=== PATIENT | female | born 1950 | race African-American/Black ===

== ENCOUNTER 2018-01-20 05:45 | Inpatient (IN) | payer OTHER ==
[~2018-01-20] VITALS: Ht 167.6 cm; Wt 94.3 kg
[2018-01-20] MEDS ORDERED: CEFAZOLIN 2 GM IVPB PREMIX 50 ML IV ONE ×2 (06:15→08:00)
[2018-01-20] MEDS ORDERED: ACETAMINOPHEN 500 MG TABLET ONE (06:15)
[2018-01-20] MEDS ORDERED: CELECOXIB 200 MG CAPSULE ONE (06:15)
[2018-01-20] MEDS ORDERED: TRANEXAMIC ACID 650 MG TABLET ONE (06:16)
[2018-01-20] MEDS ORDERED: GABAPENTIN 300 MG CAPSULE ONE (06:16)
[2018-01-20] MEDS ORDERED: oxyCODONE HCL 10 MG TAB.ER.12H PO ONE ×2 (06:16→08:00)
[2018-01-20] MEDS ORDERED: LIP40 PO (06:46)
[2018-01-20] MEDS ORDERED: HYDR12.585 PO (06:46)
[2018-01-20] MEDS ORDERED: POLYMYXIN 500,000/BACIT.10,000 UNITS in NS IRR 1 L IR ONE (07:24)
[2018-01-20] MEDS ORDERED: LR 1,000 ML IV SCH (07:53)
[2018-01-20] MEDS ORDERED: ROPIVACAINE 0.2% 100 ML INJ SCH (07:53)
[2018-01-20] MEDS ORDERED: GABAPENTIN 300 MG CAPSULE PO ONE (08:00)
[2018-01-20] MEDS ORDERED: TRANEXAMIC ACID 650 MG TABLET PO ONE (08:00)
[2018-01-20] MEDS ORDERED: HYDROcodone/ACETAMIN 10-325 MG TAB PO PRN (08:00)
[2018-01-20] MEDS ORDERED: CELECOXIB 200 MG CAPSULE PO ONE (08:00)
[2018-01-20] MEDS ORDERED: ACETAMINOPHEN 500 MG TABLET PO ONE (08:00)
[2018-01-20] MEDS ORDERED: NACL 0.9% 1,000 ML IV ONE (08:00)
[2018-01-20] MEDS ORDERED: MEPERIDINE HCL/PF 25 MG/ML DISP.SYRIN IVP PRN (08:00)
[2018-01-20] MEDS ORDERED: MORPHINE 4 MG/ML INJ. SYRINGE IVP PRN ×4 (08:00→10:00)
[2018-01-20] MEDS ORDERED: ROPIVACAINE 0.2% 550 ML INJ SCH (09:46)
[2018-01-20] MEDS ORDERED: KETOROLAC TROMETHAMINE 30 MG VIAL IVP ONE (09:50)
[2018-01-20] MEDS ORDERED: PROPOFOL 200MG/ 20ML VIAL (DIPRIVAN) IV ONE (09:50)
[2018-01-20] MEDS ORDERED: LR 1,000 ML IV.SOLN IV ONE (09:50)
[2018-01-20] MEDS ORDERED: SEVOFLURANE 15 MIN GAS INH ONE (09:50)
[2018-01-20] MEDS ORDERED: ONDANSETRON HCL 4 MG/2 ML VIAL IVP ONE (09:50)
[2018-01-20] MEDS ORDERED: DILTIAZEM HCL 25 MG/5 ML VIAL IV ONE (09:50)
[2018-01-20] MEDS ORDERED: fentaNYL CITRATE 250 MCG/5 ML AMP IV ONE (09:50)
[2018-01-20] MEDS ORDERED: fentaNYL CITRATE/PF 100 MCG/2 ML AMP IVP ONE (09:50)
[2018-01-20] MEDS ORDERED: DEXAMETHASONE SOD PHOSPHATE 4 MG/ML VIAL IVP ONE (09:50)
[2018-01-20] MEDS ORDERED: ROCURONIUM BROMIDE 10 MG/ML (ZEMURON) IV ONE (09:50)
[2018-01-20] MEDS ORDERED: MIDAZOLAM HCL 5 MG/ML VIAL (VERSED) IV ONE (09:50)
[2018-01-20] MEDS ORDERED: KETOROLAC TROMETHAMINE 15 MG VIAL IVP PRN (10:00)
[2018-01-20] MEDS ORDERED: oxyCODONE HCL 5 MG TABLET PO PRN (10:00)
[2018-01-20] MEDS ORDERED: SENNOSIDES 8.6 MG TABLET PO PRN (10:00)
[2018-01-20] MEDS ORDERED: PROMETHAZINE HCL 25 MG/ML AMP IVP PRN (10:00)
[2018-01-20] MEDS ORDERED: DIPHENHYDRAMINE HCL 25 MG CAPSULE PO PRN (10:00)
[2018-01-20] MEDS ORDERED: ONDANSETRON HCL 4 MG/2 ML VIAL IVP PRN (10:00)
[2018-01-20 11:18] VITALS: BP_SYST 126
[2018-01-20] MEDS: D5LR 1,000 ML IV SCH ×2 (11:20→21:08)
[2018-01-20 12:03] VITALS: BP_SYST 112
[2018-01-20] MEDS: CEFAZOLIN 1 GM IVPB PREMIX 50 ML IV SCH ×2 (14:18→21:08)
[2018-01-20] MEDS: ACETAMINOPHEN 500 MG TABLET PO SCH ×2 (14:19→21:09)
[2018-01-20 16:11] VITALS: BP_SYST 117; BP_SYST 146
[2018-01-20 18:02] VITALS: BP_SYST 117
[2018-01-20 20:05] VITALS: BP_SYST 108
[2018-01-20] MEDS ORDERED: CELECOXIB 200 MG CAPSULE PO SCH (21:00)
[2018-01-20] MEDS: METOPROLOL TARTRATE 25 MG TABLET PO SCH ×2 (21:00→21:58)
[2018-01-20] MEDS: GABAPENTIN 300 MG CAPSULE PO SCH (21:08)
[2018-01-21 02:47] VITALS: BP_SYST 100
[2018-01-21] MEDS: CEFAZOLIN 1 GM IVPB PREMIX 50 ML IV SCH (06:03)
[2018-01-21] MEDS: D5LR 1,000 ML IV SCH ×3 (06:03→19:34)
[2018-01-21 06:10] LABS: EOSINOPHILS # (AUTO) 0.1 K/uL (0.0-0.4); EOSINOPHILS % (AUTO) 0.3 % (0.0-4.0); HEMATOCRIT 34.1 % (36-48); HEMOGLOBIN 11.9 g/dL (12.0-16.0); LYMPHOCYTES # (AUTO) 2.2 K/uL (1.0-5.5); LYMPHOCYTES % (AUTO) 12.4 % (20.5-51.5); MEAN CORPUSCULAR HEMOGLOBIN 33 pg (27-31); MEAN CORPUSCULAR HGB CONC 35 % (32-36); MEAN CORPUSCULAR VOLUME 95 fL (79.0-98.0); MONOCYTES % (AUTO) 5.8 % (1.7-9.3); NEUTROPHILS # (AUTO) 14.5 K/uL (1.8-7.7); NEUTROPHILS % (AUTO) 81.5 % (40.0-70.0); PLATELET COUNT (AUTO) 255 K/uL (130-430); RED CELL DISTRIBUTION WIDTH 12.3 % (9.0-15.0); WHITE BLOOD COUNT (AUTO) 17.8 K/uL (4.8-10.8)
[2018-01-21 06:25] LABS: CALCIUM 9.2 mg/dL (8.4-11.0); CREATININE 0.7 mg/dL (0.55-1.30); POTASSIUM 4.4 mmol/L (3.5-5.1)
[2018-01-21] MEDS: METOPROLOL TARTRATE 25 MG TABLET PO SCH ×2 (08:10→20:05)
[2018-01-21] MEDS: HYDROCHLOROTHIAZIDE 12.5 MG CAPSULE (HCTZ) PO SCH (08:10)
[2018-01-21] MEDS: ATORVASTATIN 20 MG TABLET PO SCH (08:11)
[2018-01-21] MEDS: ACETAMINOPHEN 500 MG TABLET PO SCH ×3 (08:13→20:07)
[2018-01-21 08:25] VITALS: BP_SYST 113
[2018-01-21] MEDS: RIVAROXABAN 10 MG TABLET PO SCH (09:18)
[2018-01-21 12:10] VITALS: BP_SYST 113
[2018-01-21] MEDS: HYDROcodone/ACETAMIN 10-325 MG TAB PO PRN ×2 (12:19→23:10)
[2018-01-21 16:05] VITALS: BP_SYST 108
[2018-01-21 20:00] VITALS: BP_SYST 124; BP_SYST 138
[2018-01-21] MEDS: oxyCODONE HCL 5 MG TABLET PO PRN (20:04)
[2018-01-21] MEDS: GABAPENTIN 300 MG CAPSULE PO SCH (20:05)
[2018-01-22 02:31] VITALS: BP_SYST 113
[2018-01-22] MEDS: oxyCODONE HCL 5 MG TABLET PO PRN (03:52)
[2018-01-22] MEDS: D5LR 1,000 ML IV SCH (05:31)
[2018-01-22] MEDS: HYDROcodone/ACETAMIN 10-325 MG TAB PO PRN ×2 (06:23→13:23)
[2018-01-22 06:26] LABS: BASOPHILS % (AUTO) 0.2 % (0.0-2.0); EOSINOPHILS # (AUTO) 0.1 K/uL (0.0-0.4); EOSINOPHILS % (AUTO) 1.3 % (0.0-4.0); HEMATOCRIT 32.9 % (36-48); HEMOGLOBIN 11.3 g/dL (12.0-16.0); LYMPHOCYTES # (AUTO) 2.5 K/uL (1.0-5.5); LYMPHOCYTES % (AUTO) 23.3 % (20.5-51.5); MEAN CORPUSCULAR HEMOGLOBIN 33 pg (27-31); MEAN CORPUSCULAR HGB CONC 34 % (32-36); MEAN CORPUSCULAR VOLUME 95 fL (79.0-98.0); MONOCYTES % (AUTO) 9.6 % (1.7-9.3); NEUTROPHILS % (AUTO) 65.6 % (40.0-70.0); PLATELET COUNT (AUTO) 208 K/uL (130-430); RED BLOOD CELL COUNT(AUTO) 3.45 MIL/uL (4.2-6.2); WHITE BLOOD COUNT (AUTO) 10.6 K/uL (4.8-10.8)
[2018-01-22 06:55] LABS: CALCIUM 8.9 mg/dL (8.4-11.0); CREATININE 0.72 mg/dL (0.55-1.30); POTASSIUM 4.3 mmol/L (3.5-5.1)
[2018-01-22 08:20] VITALS: BP_SYST 138
[2018-01-22] MEDS: HYDROCHLOROTHIAZIDE 12.5 MG CAPSULE (HCTZ) PO SCH (08:51)
[2018-01-22] MEDS: ATORVASTATIN 20 MG TABLET PO SCH (08:52)
[2018-01-22] MEDS: METOPROLOL TARTRATE 25 MG TABLET PO SCH (08:53)
[2018-01-22] MEDS: ACETAMINOPHEN 500 MG TABLET PO SCH (08:56)
[2018-01-22] MEDS: RIVAROXABAN 10 MG TABLET PO SCH (10:33)
[2018-01-22 12:04] VITALS: BP_SYST 135
[2018-01-22 12:25] VITALS: BP_SYST 135
== END 2018-01-22 14:05 | DRG 470 ==
LOC: SMU 05:45 → STU 21:22 → SMU 01-21 11:05 → STU 01-21 11:10
PROVIDERS: ADMIT Orthopaedic Surgery; ATTEND Orthopaedic Surgery
PROC: 3E0T3BZ Introduction of Anesthetic Agent into Peripheral Nerves and Plexi, Percutaneous Approach (ICD-10-PCS; 2018-01-20)
PROC: 0SRC0J9 Replacement of Right Knee Joint with Synthetic Substitute, Cemented, Open Approach (ICD-10-PCS; principal; 2018-01-20 07:30)
DX: M17.0 Bilateral primary osteoarthritis of knee (principal); I48.91 Unspecified atrial fibrillation; E11.9 Type 2 diabetes mellitus without complications; E78.5 Hyperlipidemia, unspecified; I10 Essential (primary) hypertension; E66.9 Obesity, unspecified; Z68.33 Body mass index [BMI] 33.0-33.9, adult; Z88.6 Allergy status to analgesic agent
CPT/HCPCS: 36415; 80048; 85025; 87081; 88305; 88311; 93306; 94010; 97039; 97110-GP; 97116-GP; 97530-GP; 97535-GP; J0690; J1100; J1885; J2250; J2405; J2704; J2795; J3010; J3490; J7120